=== PATIENT | male | born 1960 | race Two or more races ===

== ENCOUNTER 2024-12-15 02:12 | Inpatient (IN) | payer OTHER, SELFPAY ==
[~2024-12-15] VITALS: Ht 188 cm; Wt 104.8 kg
[2024-12-15 02:17] VITALS: O2SAT 100
[2024-12-15 03:27] LABS: BASOPHILS % 0.3 % (0.0-2.0); EOSINOPHILS % 0.3 % (0.0-5.0); HEMATOCRIT. 34.3 % (42.0-52.0); HEMOGLOBIN. 11.1 g/dL (14.0-18.0); LYMPHOCYTES % 14.6 % (20.0-50.0); MEAN PLATELET VOLUME 8.5 fl (7.4-10.4); MONOCYTES % 4.7 % (2.0-8.0); NEUTROPHILS % 80.1 % (40.0-76.0); PLATELET 162 x1000/uL (130-400); RED BLOOD CELL COUNT 3.98 mill/uL (4.7-6.1); RED CELL DISTRIBUTION WIDTH 12.7 % (11.6-14.6)
[2024-12-15 03:38] LABS: CREATININE 2.0 mg/dL (0.6-1.3); UREA NITROGEN BLOOD 27 mg/dL (9-23)
[2024-12-15 03:39] LABS: TROPONIN I HIGH SENSITIVITY 8 ng/L (3.0-53)
[2024-12-15] MEDS: ACETAMINOPHEN 325MG TABLET PO ONE (05:10)
[2024-12-15] MEDS: SODIUM CHLORIDE 0.9% 1,000 ML IV ONE (05:11)
[2024-12-15] MEDS: ACETAMINOPHEN 325MG TABLET PO NR (05:11)
[2024-12-15 05:42] LABS: TROPONIN I HIGH SENSITIVITY 8 ng/L (3.0-53)
[2024-12-15 08:00] VITALS: BP 143/70; PULSE 66; RESP 18; TEMP 37.2; O2SAT 99
[2024-12-15 08:50] VITALS: BP 143/70; PULSE 66; RESP 18; TEMP 36.4736
[2024-12-15] MEDS ORDERED: ONDANSETRON HCL 4MG/2ML INJ IV PRN (09:45)
[2024-12-15] MEDS ORDERED: DEXTROSE 50% WATER 50ML SYRINGE IV PRN (09:45)
[2024-12-15] MEDS ORDERED: ACETAMINOPHEN 325MG TABLET PO PRN (09:45)
[2024-12-15] MEDS ORDERED: BLOOD SUGAR DIAGNOSTIC STRIP TEST SCH (12:20)
[2024-12-15] MEDS ORDERED: INSULIN LISPRO 100 UNITS/ML SUBCUT SCH (12:50)
== END 2024-12-15 11:10 | disposition left against medical advice (07) | DRG 90 ==
LOC: ER 02:12 → 6WST 04:29 → ENRESERV 04:51
PROVIDERS: ADMIT Internal Medicine; ATTEND Internal Medicine
DX: S06.0XAA Concussion with loss of consciousness status unknown, initial encounter (principal); S00.93XA Contusion of unspecified part of head, initial encounter; S16.1XXA Strain of muscle, fascia and tendon at neck level, initial encounter; S80.01XA Contusion of right knee, initial encounter; S80.02XA Contusion of left knee, initial encounter; E11.9 Type 2 diabetes mellitus without complications; X58.XXXA Exposure to other specified factors, initial encounter; Y93.89 Activity, other specified; Y92.89 Other specified places as the place of occurrence of the external cause; Y99.8 Other external cause status; Z53.29 Procedure and treatment not carried out because of patient's decision for other reasons
CPT/HCPCS: 36415; 71045; 73130; 73562; 80048; 83036; 84484; 85025; 93005; 99285; J7030